=== PATIENT | female | born 1945 | race Caucasian/White ===

== ENCOUNTER 2019-04-10 05:00 | Observation (INO) | payer MEDICARE ==
[2019-04-06 14:57] LABS: BASOPHILS % 0.3 % (0.0-1.0); EOSINOPHILS # (AUTO) 0.3 (0.0-0.4); EOSINOPHILS % 2.8 % (0.0-6.0); HEMATOCRIT 37.5 % (34.2-44.1); HEMOGLOBIN 11.9 g/dL (12.0-16.0); LYMPHOCYTES # (AUTO) 3.5 (1.0-3.2); MEAN CORPUSCULAR HEMOGLOBIN 29.5 pg (28-32); MEAN CORPUSCULAR HGB CONC 31.7 g/dL (31-35); MEAN CORPUSCULAR VOLUME 92.8 fL (81-99); MONOCYTES # (AUTO) 0.7 (0.2-0.8); MONOCYTES % 7.4 % (4.4-11.3); NEUTROPHILS # (AUTO) 5.1 (2.1-6.9); NEUTROPHILS % 53.2 % (38.7-80.0); PLATELET COUNT 280 x10e3/uL (140-360); RED BLOOD COUNT 4.04 x10e6/uL (3.6-5.1); RED CELL DISTRIBUTION WIDTH 12.3 % (11.7-14.4)
--- NOTE | 2019-04-06 15:13 | Diagnostic Imaging Report ---
EXAMINATION: CHEST 2 VIEWS INDICATION: Pre-operative COMPARISON: None FINDINGS: LINES/TUBES:None LUNGS:The lungs are mildly hyperinflated. No focal consolidation or pulmonary edema. PLEURA:No pleural effusion or pneumothorax. MEDIASTINUM:The cardiomediastinal silhouette appears normal in size and shape. BONES/SOFT TISSUES:No acute osseous injury. ABDOMEN:No free air under the diaphragm. IMPRESSION: Mildly hyperinflated lungs. No focal pneumonia or pulmonary edema. Signed by: Alyce Mathew MD on 04/06/2019 3:10 PM
[2019-04-06 15:20] LABS: ALANINE AMINOTRANSFERASE 19 IU/L (0-55); ALBUMIN 3.8 g/dL (3.5-5.0); ALKALINE PHOSPHATASE 75 IU/L (40-150); ANION GAP 14.9 mmol/L (8-16); BLOOD UREA NITROGEN 14 mg/dL (7-26); BUN/CREATININE RATIO 19 (6-25); CALCIUM 9.1 mg/dL (8.4-10.2); CARBON DIOXIDE 25 mmol/L (22-29); CHLORIDE 99 mmol/L (98-107); CREATININE, SERUM 0.73 mg/dL (0.57-1.11); EST GLOMERULAR FILTRATION RATE > 60 ML/MIN (60-); GLUCOSE 82 mg/dL (74-118); POTASSIUM 3.9 mmol/L (3.5-5.1); SODIUM 135 mmol/L (136-145)
[~2019-04-10] VITALS: Ht 162.6 cm; Wt 77.1 kg
[~2019-04-10 05:00] MED LIST: ATORVASTATIN CA20 MG PO; HYDROCHLOROTHIA25 MG PO; LISINOPRIL10 MG PO; SYNTHROID125 MCG PO
--- OUTSIDE RECORDS SUMMARY | 2019-04-10 05:08 | XMS REPORT ---
Author Author [facility] Address Unknown Phone Unavailable Care Team Providers Care Director Chemistry Name Role Phone Telma CANTU Unavailable Unavailable Problems This patient has no known problems. Allergies, Adverse Reactions, Alerts This patient has no known allergies or adverse reactions. Medications This patient has no known medications. Results Test Description Test Time Test Comments Text Results Atomic Results Result Comments CHEST 2 VIEWS 2019-04-06 15:10:00 [place] [id number] Patient Name: JESSICA HUITRON MR #: [id number] : 1945 Age/Sex: 73/F Req #: [id number] Adm Physician: Ordered by: KRISTI CANTU MD Report #: [id number] Location: OR Room/Bed: Procedure: [id number] DX/CHEST 2 VIEWS Exam Date: 04/06/19 Exam Time: 1440 REPORT STATUS: Signed EXAMINATION: CHEST 2 VIEWS INDICATION: Pre-operative COMPARISON: None FINDINGS: LINES/TUBES:None LUNGS:The lungs are mildly hyperinflated. No focal consolidation or pulmonary edema. PLEURA:No pleural effusion or pneumothorax. MEDIASTINUM:The cardiomediastinal silhouette appears normal in size and shape. BONES/SOFT TISSUES:No acute osseous injury. ABDOMEN:No free air under the diaphragm. IMPRESSION: Mildly hyperinflated lungs. No focal pneumonia or pulmonary edema. Signed by: Tyron Hickman MD on 04/06/2019 3:10 PM Dictated By: TYRON HICKMAN MD [id number] Transcribed By: AMY on 04/06/19 1510 COPY TO: KRISTI CANTU MD SCR MAMM BILATERAL KAREN CAD DIGITAL 2018-05-08 11:05:03 - SCR MAMM BILATERAL KAREN CAD DIGITALBILATERAL DIGITAL SCREENING MAMMOGRAM 3D/2D WITH CAD: 05/05/2018CLINICAL: Asymptomatic. Digital breast tomosynthesis was performed in addition to routine CC and MLO views. Current mammographic images were evaluated by either a [employer] M-Vu or a [employer] ImageZattoocker CAD (computer aided detection system). Comparison is made to exams dated 03/14/2017 mammogram, mammogram, and 01/22/2015 mammogram - [facility]. The tissue of both breasts is heterogeneously dense. This may lower the sensitivity of mammography. There are benign calcifications in both breasts. No suspicious mass, architectural distortion, malignant type calcification, or lymph node abnormality detected. Breast architecture is stable compared to prior exams.IMPRESSION: BENIGNThere is no mammographic evidence of malignancy. Resume annual screening mammography in one year. Saud schneider/penrad:05/08/2018 11:05:03 Casino Investigator: Hannah ZUNIGA, [facility] sent: BIRADS 1-2 Normal Mammogram BI-RADS: 2 Benign
[2019-04-10] MEDS ORDERED: CEFAZOLIN SOD 1 GM/NS 50ML 100 ML IV ONE (05:55)
[2019-04-10] MEDS ORDERED: BUPIVACAINE 0.5%/EPI 30 ML SDV INJ ONE (07:05)
[2019-04-10] MEDS ORDERED: SIMETHICONE 80 MG CHEW PO PRN (10:15)
[2019-04-10] MEDS ORDERED: DIPHENHYDRAMINE HCL 25 MG CAP PO PRN (10:15)
[2019-04-10] MEDS ORDERED: HYDROCODONE/APAP 5MG-325MG TAB PO PRN (10:15)
[2019-04-10] MEDS ORDERED: HYDROCODONE/APAP 10MG-325MG TAB PO PRN (10:15)
[2019-04-10] MEDS ORDERED: HYDROMORPHONE 1MG/1ML INJ IV PRN (10:15)
[2019-04-10] MEDS ORDERED: ONDANSETRON HCL INJ 2MG/ML 2ML 2 MG/ML VIAL IV PRN (10:15)
[2019-04-10] MEDS ORDERED: FENTANYL CITRATE/PF 100MCG/2 ML INJ ONE ×2 (10:35→18:32)
[2019-04-10] MEDS: KETOROLAC TROMETHAMINE 30 MG/ML VIAL IV SCH ×2 (12:00→17:55)
[2019-04-10] MEDS: LACTATED RINGER'S 1,000 ML IV SCH ×2 (12:30→17:19)
--- NOTE | 2019-04-10 12:30 | NUR ---
PT RECEIVED FROM PACU. AAOX4. EDUCATED PT ABOUT FALL PRECAUTIONS. CALL LIGHT WITH IN EASY REACH. INSTRUCTED PT TO USE CALL LIGHT FOR ALL THE NEEDS. PT VERBALIZED UNDERSTANDING. BED IS LOW AND LOCKED. SIDE RAILS X2. BED ALARM IS ON. FAMILY MEMBER AT BEDSIDE. TORADOL AT 1200 GIVEN FROM PACU PER THE OR MANAGER. PT DENIES NEEDS AT THIS TIME.
--- NOTE | 2019-04-10 12:35 | NUR ---
POST OP DRESSING CDI. PT DENIES NEEDS AT THIS TIME.
[2019-04-10 12:43] VITALS: BP 118/61
[2019-04-10 13:00] VITALS: BP 118/61
[2019-04-10 15:17] VITALS: BP 145/65
[2019-04-10] MEDS: GABAPENTIN 300 MG CAP PO SCH ×2 (15:57→20:42)
[2019-04-10] MEDS: DOCUSATE SODIUM 100 MG CAP PO SCH (16:06)
[2019-04-10] MEDS ORDERED: GLYCOPYRROLATE INJ 0.2 MG/ML VIAL ONE (18:13)
[2019-04-10] MEDS ORDERED: ROCURONIUM BROMIDE 10 MG/ML 5ML VIAL ONE (18:13)
[2019-04-10] MEDS ORDERED: ACETAMINOPHEN 1000 MG/100 ML IV ONE (18:13)
[2019-04-10] MEDS ORDERED: PROPOFOL IV EMULSION 10 MG/ML 20 ML VIAL ONE (18:13)
[2019-04-10] MEDS ORDERED: SEVOFLURANE INHAL SOLN 250 ML PEN BTL ONE (18:13)
[2019-04-10] MEDS ORDERED: EPHEDRINE SULFATE INJ 50 MG/ML VIAL ONE (18:13)
[2019-04-10] MEDS ORDERED: ONDANSETRON HCL INJ 2MG/ML 2ML 2 MG/ML VIAL ONE (18:13)
[2019-04-10] MEDS ORDERED: LIDOCAINE HCL 2% LOCAL INJ 5 ML SDV VIAL INJ ONE (18:13)
[2019-04-10] MEDS ORDERED: NEOSTIGMINE 1 MG/ML 10ML VIAL ONE (18:13)
[2019-04-10] MEDS ORDERED: DEXAMETHASONE SOD PHOS INJ 4 MG/ML VIAL ONE (18:13)
--- NOTE | 2019-04-10 18:30 | NUR ---
BLADDER SCAN PERFORMED. 21 ML NOTED. PT DENIES NEEDS AT THIS TIME.
--- NOTE | 2019-04-10 19:00 | NUR ---
BEDSIDE SHIFT REPORT GIVEN TO THE SENIOR SYSTEMS SOFTWARE ENGINEER RN. PT DENIED FURTHER NEEDS.
--- NOTE | 2019-04-10 19:15 | NUR ---
patient received awake, alert, lying quietly in bed. pain minimal at this time. ivf continue to infuse without difficulty. pm assessment complete. patient instructed to call for assistance when needed.
[2019-04-10 19:30] VITALS: BP 135/61
[2019-04-10 20:00] VITALS: BP 135/61
[2019-04-10] MEDS ORDERED: ATORVASTATIN 20 MG TAB PO SCH ×2 (21:00)
[2019-04-10] MEDS ORDERED: BISACODYL 5 MG TAB EC PO ONE (21:00)
[2019-04-10] MEDS ORDERED: ATORVASTATIN 40 MG TAB PO SCH (21:00)
[2019-04-11] VITALS: BP 127/60
[2019-04-11] MEDS: KETOROLAC TROMETHAMINE 30 MG/ML VIAL IV SCH
--- NOTE | 2019-04-11 | NUR ---
Pain minimal at this time. patient medicated with scheduled toradol 30mg ivp per orders. patient encouraged to turn, cough and deep breath. patient verbalizes understanding of this.
[2019-04-11] MEDS: LACTATED RINGER'S 1,000 ML IV SCH (00:15)
[2019-04-11 04:00] VITALS: BP 139/65
[2019-04-11 05:28] LABS: BASOPHILS % 0.2 % (0.0-1.0); EOSINOPHILS # (AUTO) 0.1 (0.0-0.4); EOSINOPHILS % 0.4 % (0.0-6.0); HEMATOCRIT 30.5 % (34.2-44.1); HEMOGLOBIN 9.9 g/dL (12.0-16.0); LYMPHOCYTES # (AUTO) 3.8 (1.0-3.2); LYMPHOCYTES % 31.4 % (18.0-39.1); MEAN CORPUSCULAR HEMOGLOBIN 30.4 pg (28-32); MEAN CORPUSCULAR HGB CONC 32.5 g/dL (31-35); MEAN CORPUSCULAR VOLUME 93.6 fL (81-99); MONOCYTES # (AUTO) 1.2 (0.2-0.8); MONOCYTES % 9.8 % (4.4-11.3); NEUTROPHILS # (AUTO) 7.1 (2.1-6.9); NEUTROPHILS % 57.9 % (38.7-80.0); PLATELET COUNT 236 x10e3/uL (140-360); RED BLOOD COUNT 3.26 x10e6/uL (3.6-5.1); RED CELL DISTRIBUTION WIDTH 12.5 % (11.7-14.4)
[2019-04-11 05:33] LABS: ANION GAP 11.2 mmol/L (8-16); BLOOD UREA NITROGEN 14 mg/dL (7-26); BUN/CREATININE RATIO 18 (6-25); CALCIUM 8.6 mg/dL (8.4-10.2); CARBON DIOXIDE 29 mmol/L (22-29); CHLORIDE 103 mmol/L (98-107); CREATININE, SERUM 0.76 mg/dL (0.57-1.11); EST GLOMERULAR FILTRATION RATE > 60 ML/MIN (60-); GLUCOSE 95 mg/dL (74-118); POTASSIUM 4.2 mmol/L (3.5-5.1); SODIUM 139 mmol/L (136-145)
[2019-04-11] MEDS: CELECOXIB 200 MG CAP PO SCH ×2 (06:00→09:34)
[2019-04-11] MEDS ORDERED: LEVOTHYROXINE SODIUM 125 MCG TAB PO SCH (06:00)
--- NOTE | 2019-04-11 06:00 | NUR ---
vaginal pack and hernandez catheter d/c'd without difficulty at this time. no c/o pain noted.
--- NOTE | 2019-04-11 06:45 | NUR ---
H&P PCP Nash Mena MD, PhD. cc; pelvic organ prolapse HPI: 73yoF, admitted to [facility] for Pelvic organ prolapse repair, underwent total vaginal hysterectomy with b/l salpingo-oophrectomy, now recovering; Pain controlled with IV narcotics. PMH: HTN, HLD, Hypothyroidism, Uterine Prolapse, Bruxism , E.coli UTI, Insomnia, Osteoporosis, Internal hemorrhoids, Sessile colonic polyp, Diverticulosis, vitB12 deficiency, CHF type unspecified, Hypertensive heart disease, Oveweight, Hypertensive cardiomyopathy, Vascular disaese, BPPV Stress urinary incontinence, Surgical History: Negative Allergies; see emr FHSH; ; no illicits; no cigs meds; see MAR ROS; no f/c/s/N/V/D/ANTHONY/cp/sob/skin rash/back pain/dizziness/leg pain/confusion v/s revd PE tired appearing anicteric ns1s2 mod bs soft nd; abdominal wall dressings no e/t skin dry n. affect labs/meds revd A/P: Uterine prolapse- s/p TAHBSO Abdominal pain- prn narcotics Hypertensive heart disease- home meds HLD- home meds Hypothyroidism- restart home med Prop: scd dispo: d/c planning;
[2019-04-11 08:07] VITALS: BP 121/64
[2019-04-11] MEDS ORDERED: LISINOPRIL 20 MG TAB PO SCH (09:00)
[2019-04-11] MEDS ORDERED: HYDROCHLOROTHIAZIDE 25 MG TAB PO SCH (09:00)
[2019-04-11] MEDS ORDERED: ENOXAPARIN SOD INJ 40 MG/0.4 ML SYR SC SCH (09:00)
[2019-04-11] MEDS: GABAPENTIN 300 MG CAP PO SCH (09:35)
[2019-04-11] MEDS: DOCUSATE SODIUM 100 MG CAP PO SCH (09:35)
[2019-04-11 11:30] VITALS: BP 150/68
[2019-04-11] MEDS ORDERED: NORCO 5-325 TA1 EACH PO (13:01)
[2019-04-11] MEDS ORDERED: CELEBREX100 MG PO (13:01)
[2019-04-11] MEDS ORDERED: COLACE100 MG PO (13:01)
[2019-04-11] MEDS ORDERED: GABAPENTIN300 MG PO (13:01)
--- NOTE | 2019-04-17 20:16 | Operative Report ---
DATE OF PROCEDURE: 04/10/2019 SURGEON: Arabella Brown MD (previously Arabella Francis MD) EXTENSION SERVICE SPECIALIST IN CHARGE: Brii Sanchez MD PREOPERATIVE DIAGNOSIS: Pelvic organ prolapse. POSTOPERATIVE DIAGNOSIS: Pelvic organ prolapse. PROCEDURES PERFORMED: Total vaginal hysterectomy with bilateral salpingo- oophorectomy, anterior and posterior colporrhaphy and sacrospinous colpopexy. ANESTHESIA: General. ESTIMATED BLOOD LOSS: 200 mL. COMPLICATIONS: None. FINDINGS: The patient was noted to have a third-degree anterior and uterine prolapse with second-degree posterior prolapse. SPECIMENS: Uterus with attached cervix and bilateral fallopian tubes and ovaries. INDICATIONS: The patient is a 73-year-old postmenopausal female with pelvic organ prolapse, desiring definitive surgical management. PROCEDURE NOTE: The risks, benefits, indications, and alternatives of the procedure were reviewed with the patient and informed consent was obtained. The patient was taken to the operating room, where general anesthesia was obtained. She was placed in dorsal lithotomy position in [facility] stirrups, prepped and draped in typical sterile fashion. A time-out was done. A Ferrari catheter was placed and then a weighted speculum was then placed in the vagina and the cervix was grasped with two single-tooth tenaculums. A solution of Marcaine with epinephrine was injected circumferentially around the cervix. The cervix was circumscribed and the bladder was dissected off with sharp dissection. The posterior cul-de-sac was sharply entered and a long weighted gooseneck retractor was placed into the cul-de-sac in replacement of the standard weighted speculum. The right uterosacral ligament was then identified, clamped with a zeppelin clamp, divided, and suture ligated with #0 Vicryl in a like fashion. Left uterosacral ligament was then clamped, divided, and suture ligated. The left cardinal ligament and uterine vessels were then identified and sequentially clamped coagulated and cut with the LigaSure device. This was followed by sequential clamping, coagulation, and cutting of the cardinal ligaments and uterine vessels on the right with the LigaSure device. The anterior cul-de-sac was then sharply dissected until the vesicouterine peritoneal reflection was identified and this was entered sharply. The right utero-ovarian ligament and fallopian tube were clamped with a curved zeppelin clamp, divided and suture ligated. This was again performed on the contralateral side. The uterus and cervix were then removed through the vagina and sent for pathology. The left fallopian tube and ovary were then grasped with a [place] clamp and a curved zeppelin clamp was used to clamp the infundibulopelvic ligament. This was then divided and suture ligated and the adnexa removed and sent for pathology. The same procedure was then performed on the contralateral side. All hysterectomy pedicles were inspected and noted to be hemostatic. Attention was then turned to the anterior repair, where the lateral edges of the vaginal cuff were held with Allis clamps on tension and a solution of Marcaine with epinephrine was injected just below the vaginal mucosa throughout the area of the cystocele. Several Allis clamps were placed 3-4 cm apart of the midline of the anterior vaginal wall. The edges of the vaginal mucosa were held with hemostats and the Metzenbaum scissors were used to undermine the mucosa from the underlying fascia. The mucosa was then opened with the scissors in the midline to approximately within 1-2 cm of the urethral meatus. As the vagina was opened, edges of mucosa were again grasped with hemostats. The fascia was from the vaginal mucosa using both sharp and blunt dissection until the bladder and urethra were from the vaginal mucosa and clearly identified. A finger was then inserted through this incision in the vaginal mucosa and used to bluntly dissect the rectovaginal space on the patient's right side. The ischial spine and sacrospinous ligament were palpated and loose areolar tissue was bluntly dissected off this ligament. A zone approximately 1-2 cm medial to the ischial spine was selected for the insertion of the suture. A Capio SLIM suture capturing device was loaded with 0 suture and was then introduced into the space and passed to the sacrospinous ligament. This entire procedure was then repeated on the patient's left sacrospinous ligament. The ends of the suture previously inserted through the sacrospinous ligament were placed through the muscular layer of the vagina using the Capio device. Attention was then returned to the anterior repair, which was started by placing 0 Vicryl sutures in the pubovesical cervical fascia starting approximately 1 cm below the urethral meatus. The remaining fascia was plicated in the midline with multiple interrupted 0 Vicryl sutures until the entire cystocele had been reduced. The edges of the vaginal mucosa were held on tension and excessive vaginal mucosa was trimmed away using Corral scissors. The vaginal mucosa was then sutured in midline with continuous 0 Vicryl. The vaginal cuff was then closed. The vaginal cuff was inspected and found to be hemostatic. The attention was then turned to the posterior repair, where the apices of the posterior fourchette were grasped with Allis clamps and a solution of Marcaine with epinephrine was injected just below the vaginal mucosa throughout the area of the rectocele. A transverse incision was then made with a scalpel at the level of the hymenal ring. An additional Allis clamp was placed in the midline at the top of the rectocele and two hemostats were placed at the edges of the mucosa for retraction. Metzenbaum scissors were then inserted under the under the posterior vaginal mucosa dissecting the posterior mucosa off the rectovaginal fascia. A midline incision was then made in the mucosa. This process was repeated until the superior apex of the rectocele was reached. Interrupted sutures of 0 Vicryl were then placed to reapproximate the superficial transverse perinei muscle and levator ani muscle respectively. The vagina was closed over this repair using 2-0 Vicryl suture. The bulbocavernosus was reapproximated in the midline using a single interrupted 0 Vicryl suture. The perineum was then repaired using 2-0 Vicryl in a subcuticular fashion. The vagina was then irrigated and found to be hemostatic. Vaginal packing soaked in jelly was then placed in the vagina and all instruments were removed. The patient was awakened from general anesthesia and brought to the recovery room in stable condition. All sponge, lap, needle, and instrument counts were correct x2 at the end of the procedure. MD LELE Marx/MODL /[id number] CHUY
--- NOTE | 2019-04-17 21:32 | NUR ---
D/C Summary Principal dx: Uterine prolapse- s/p TAHBSO Abdominal pain- prn narcotics Secondary Dx: Hypertensive heart disease- home meds HLD- home meds Hypothyroidism- restart home med Prop: scd dispo: d/c planning; d/c home stable d/c >35mins f/u pcp 1 week Nash Mena MD, PhD.
== END 2019-04-11 14:31 | disposition home or self-care (01) ==
LOC: OR 05:00 → PACU V 10:15 → MED/SURG3 12:23
PROVIDERS: ADMIT Obstetrics & Gynecology Obstetrics; ATTEND Obstetrics & Gynecology Obstetrics
DX: N81.89 Other female genital prolapse (principal); Z01.810 Encounter for preprocedural cardiovascular examination; Z01.812 Encounter for preprocedural laboratory examination; Z01.811 Encounter for preprocedural respiratory examination; I10 Essential (primary) hypertension; E03.9 Hypothyroidism, unspecified; E78.5 Hyperlipidemia, unspecified
CPT/HCPCS: 36415 ×2; 57260; 57282; 58262; 71046; 80048; 80053; 85025 ×2; 86850; 86900; 88307; 93005; G0378 ×2; J0131; J0690; J1100; J1650; J1885 ×2; J2001; J2405; J2704; J2710; J3010; J7121 ×2